=== PATIENT | male | born 1945 | race Caucasian/White ===

== ENCOUNTER 2022-06-05 22:12 | Inpatient (IN) | payer MEDICARE, BC ==
[~2022-06-05] VITALS: Ht 167.6 cm; Wt 75.3 kg
[2022-06-05] MEDS ORDERED: ALBUTEROL (0.083%) 2.5MG/3ML NEB HHN STA (22:22)
[2022-06-05] MEDS ORDERED: METHYLPREDNISOLONE SOD SUCC 125 MG/2 ML VIAL IV STA (22:22)
[2022-06-05] MEDS ORDERED: NITROGLYCERIN 50MG PREMIX 250 ML IV ONE ×2 (22:30→22:45)
[2022-06-05 22:45] LABS: BG BASE EXCESS 0.3 mmol/L (-2.0-2.0); BG CARBOXYHEMOGLOBIN 4.5 % (0.5-1.5); BG DEOXYHEMOGLOBIN 0.5 % (0.0-5.0); BG FRACTION INSPIRED OXYGEN 100; BG HCO3 ACT 24.8 mmol/L (22.0-26.0); BG METHEMOGLOBIN 0.3 % (0.0-1.5); BG OXYGEN SATURATION 99.5 % (92.0-98.5); BG OXYHEMOGLOBIN 94.7 % (94.0-97.0); BG PCO2 39.7 mmHg (35.0-45.0); BG PH 7.414 (7.350-7.450); BG PO2 513.4 mmHg (75.0-100.0); BG SAMPLE SITE RIGHT RADIAL; BG TOTAL HEMOGLOBIN 13.7 g/dL (12.0-18.0); BG VENT MODE MASK - BIPAP
[2022-06-05 22:49] LABS: BASOPHILS % 0.9 % (0.0-2.0); EOSINOPHILS % 2.2 % (0.0-5.0); HEMATOCRIT. 42.3 % (42.0-52.0); HEMOGLOBIN. 13.7 g/dL (14.0-18.0); LYMPHOCYTES % 23.9 % (20.0-50.0); MEAN CORPUSCULAR HEMOGLOBIN 28.2 pg (28.0-32.0); MEAN CORPUSCULAR VOLUME 86.7 fL (80.0-94.0); MEAN PLATELET VOLUME 9.8 fl (7.4-10.4); MONOCYTES % 13.4 % (2.0-8.0); NEUTROPHILS % 59.6 % (40.0-76.0); PLATELET 389 x1000/uL (130-400); RED BLOOD CELL COUNT 4.88 mill/uL (4.7-6.1); RED CELL DISTRIBUTION WIDTH 15.2 % (11.6-14.6)
[2022-06-05 22:54] LABS: CHLORIDE 106 mEq/L (98-107)
[2022-06-05 22:59] LABS: PARTIAL THROMBOPLASTIN TIME 27.6 sec (23.4-31.0); PROTHROMBIN TIME 10.9 sec (9.6-11.0)
[2022-06-06] MEDS ORDERED: ASPIRIN 81MG TABLET PO ONE (01:30)
[2022-06-06] MEDS ORDERED: CLONIDINE 0.1MG TABLET PO PRN (02:00)
[2022-06-06] MEDS ORDERED: LORAZEPAM 0.5MG TABLET PO PRN (02:00)
[2022-06-06] MEDS ORDERED: DOCUSATE SODIUM 100MG CAPSULE PO PRN (02:00)
[2022-06-06] MEDS ORDERED: IPRATROPIUM/ALBUTEROL 0.5-3(2.5)MG/3ML NEB HHN PRN (02:00)
[2022-06-06] MEDS ORDERED: ACETAMINOPHEN 325MG TABLET PO PRN ×2 (02:00)
[2022-06-06] MEDS ORDERED: ONDANSETRON HCL 4MG/2ML INJ IV PRN (02:00)
[2022-06-06] MEDS ORDERED: ALBUTEROL (0.083%) 2.5MG/3ML NEB HHN PRN (02:15)
[2022-06-06] MEDS ORDERED: IPRATROPIUM BROMIDE (0.02%) 0.5MG/2.5ML NEB HHN PRN (02:15)
[2022-06-06] MEDS ORDERED: NITROGLYCERIN 0.4MG TABLET SL SL PRN (02:15)
[2022-06-06] MEDS ORDERED: DEXTROSE 50% WATER 50ML SYRINGE IV PRN (02:45)
[2022-06-06 02:59] LABS: PHOSPHORUS 2.2 mg/dL (2.5-4.9)
[2022-06-06] MEDS ORDERED: AZITHROMYCIN 250 MG in DEXT 5% WATER 250 ML IV SCH ×2 (03:00→06:30)
[2022-06-06] MEDS ORDERED: FUROSEMIDE 40MG/4ML VIAL IVP NR (04:15)
[2022-06-06 04:25] LABS: D-DIMER 2.19 mg/L FEU (<0.50); PARTIAL THROMBOPLASTIN TIME 27.5 sec (23.4-31.0); PROTHROMBIN TIME 10.7 sec (9.6-11.0)
[2022-06-06 04:26] LABS: CREATINE KINASE MB FRACTION 2.3 ng/mL (0.5-3.6)
[2022-06-06] MEDS ORDERED: SODIUM PHOS,M-BASIC-D-BASIC 10 MM in DEXT 5% WATER 246.6667 ML IV NR (06:30)
[2022-06-06] MEDS: BLOOD SUGAR DIAGNOSTIC STRIP TEST SCH ×3 (08:29→21:47)
[2022-06-06] MEDS ORDERED: METHYLPREDNISOLONE SOD SUCC 40 MG/ML VIAL IV SCH (09:00)
[2022-06-06] MEDS ORDERED: LISINOPRIL 40MG TABLET PO SCH (09:00)
[2022-06-06] MEDS ORDERED: IOHEXOL-300 100 ML BOTTLE ONE (09:41)
[2022-06-06] MEDS: FAMOTIDINE 20MG TABLET PO SCH ×2 (10:17→21:48)
[2022-06-06] MEDS: ENOXAPARIN 40MG/0.4ML SYR SUBCUT SCH (10:17)
[2022-06-06] MEDS ORDERED: LISINOPRIL 20MG TABLET PO SCH (10:20)
[2022-06-06] MEDS: LISINOPRIL 20MG TABLET PO SCH (12:15)
[2022-06-06] MEDS ORDERED: CARV3.1242 PO (12:26)
[2022-06-06] MEDS ORDERED: HYDR12.54 PO (12:26)
[2022-06-06] MEDS ORDERED: LISI40TA13 PO (12:26)
[2022-06-06] MEDS ORDERED: SIMV-46 PO (12:26)
[2022-06-06] MEDS ORDERED: HYDRALAZINE 10 MG in SODIUM CHLORIDE 0.9% 49.5 ML IV PRN (12:30)
[2022-06-06] MEDS ORDERED: HYDRALAZINE 20MG/ML VIAL IV PRN (12:45)
[2022-06-06 13:40] VITALS: BP 144/80
[2022-06-06 17:01] VITALS: BP 138/67
[2022-06-06 18:05] LABS: CREATINE KINASE MB FRACTION 2.1 ng/mL (0.5-3.6)
[2022-06-06] MEDS: FUROSEMIDE 40MG/4ML VIAL IVP SCH (18:52)
[2022-06-06 20:00] VITALS: BP 160/87
[2022-06-06] MEDS ORDERED: MEDICATION NOT ON FORMULARY EA (Simvastatin 1 TAB) PO SCH (21:00)
[2022-06-06] MEDS: ATORVASTATIN CALCIUM 20MG TABLET PO SCH ×2 (21:46→21:48)
[2022-06-07] VITALS (7 sets, daily range): BP systolic 147–170; BP diastolic 82–101
[2022-06-07 00:43] LABS: CREATINE KINASE MB FRACTION 2.1 ng/mL (0.5-3.6)
[2022-06-07 01:00] LABS: HEPATITIS B SURFACE ANTIGEN NEGATIVE
[2022-06-07 06:02] LABS: BASOPHILS % 0.2 % (0.0-2.0); EOSINOPHILS % 0.3 % (0.0-5.0); HEMATOCRIT. 40.4 % (42.0-52.0); HEMOGLOBIN. 13.3 g/dL (14.0-18.0); LYMPHOCYTES % 17.2 % (20.0-50.0); MEAN CORPUSCULAR VOLUME 85.2 fL (80.0-94.0); MEAN PLATELET VOLUME 10.2 fl (7.4-10.4); MONOCYTES % 14.7 % (2.0-8.0); NEUTROPHILS % 67.6 % (40.0-76.0); PLATELET 302 x1000/uL (130-400); RED BLOOD CELL COUNT 4.74 mill/uL (4.7-6.1)
[2022-06-07 06:15] LABS: CHLORIDE 103 mEq/L (98-107)
[2022-06-07] MEDS: BLOOD SUGAR DIAGNOSTIC STRIP TEST SCH ×4 (07:40→21:04)
[2022-06-07] MEDS: LISINOPRIL 20MG TABLET PO SCH (08:25)
[2022-06-07] MEDS: FAMOTIDINE 20MG TABLET PO SCH ×2 (08:25→21:01)
[2022-06-07] MEDS: ENOXAPARIN 40MG/0.4ML SYR SUBCUT SCH (08:26)
[2022-06-07] MEDS: FUROSEMIDE 40MG/4ML VIAL IVP SCH (08:26)
[2022-06-07] MEDS ORDERED: POTASSIUM CHLORIDE 20MEQ/PACKET PO NR (08:45)
[2022-06-07 13:47] LABS: *AMPHETAMINES SCREEN URINE NEGATIVE (NEGATIVE); *BARBITURATES SCREEN URINE NEGATIVE (NEGATIVE); *BENZODIAZEPINES SCREEN URINE NEGATIVE (NEGATIVE); *COCAINE SCREEN URINE NEGATIVE (NEGATIVE); CANNABINOID URINE SCREEN PRESUMTIVE POSITIVE (NEGATIVE); METHADONE URINE SCREEN NEGATIVE (NEGATIVE); OPIATES URINE SCREEN NEGATIVE (NEGATIVE); PHENCYCLIDINE URINE SCREEN NEGATIVE (NEGATIVE)
[2022-06-07 17:15] LABS: CLARITY URINE CLEAR (CLEAR); COLOR URINE YELLOW (YELLOW); KETONES URINE NEGATIVE (NEGATIVE); LEUKOCYTE ESTERASE URINE NEGATIVE (NEGATIVE); NITRITE URINE NEGATIVE (NEGATIVE); OCCULT BLOOD URINE NEGATIVE (NEGATIVE); PH URINE 6.5 (4.5-8.0); PROTEIN URINE 1+ (NEGATIVE); SPECIFIC GRAVITY URINE 1.016 (1.005-1.030)
[2022-06-07] MEDS: CLONIDINE 0.1MG TABLET PO SCH (17:43)
[2022-06-07] MEDS: AMLODIPINE 10MG TABLET PO SCH (17:44)
[2022-06-08] VITALS: BP 140/74
[2022-06-08 04:00] VITALS: BP 140/77
[2022-06-08] MEDS: BLOOD SUGAR DIAGNOSTIC STRIP TEST SCH ×5 (07:40→20:55)
[2022-06-08 08:00] VITALS: BP 148/83
[2022-06-08 08:52] LABS: HEMATOCRIT. 44.6 % (42.0-52.0); MEAN CORPUSCULAR HEMOGLOBIN 28.7 pg (28.0-32.0); MEAN CORPUSCULAR VOLUME 85.5 fL (80.0-94.0); MEAN PLATELET VOLUME 10.1 fl (7.4-10.4); PLATELET 317 x1000/uL (130-400); RED BLOOD CELL COUNT 5.22 mill/uL (4.7-6.1); RED CELL DISTRIBUTION WIDTH 14.9 % (11.6-14.6)
[2022-06-08] MEDS: CLONIDINE 0.1MG TABLET PO SCH ×2 (09:00→17:20)
[2022-06-08 09:03] LABS: CHLORIDE 103 mEq/L (98-107)
[2022-06-08 09:17] LABS: HDL CHOLESTEROL 51 mg/dL (40-59); LDL CHOLESTEROL 134 mg/dL (5-100); PHOSPHORUS 3.3 mg/dL (2.5-4.9); TOTAL IRON BINDING CAPACITY 404 ug/dL (250-450)
[2022-06-08 09:38] LABS: PLATELET ESTIMATE NORMAL
[2022-06-08 09:47] LABS: VITAMIN B12 SERUM 375 pg/mL (211-911)
[2022-06-08] MEDS: FUROSEMIDE 40MG/4ML VIAL IVP SCH (09:59)
[2022-06-08] MEDS: FAMOTIDINE 20MG TABLET PO SCH ×2 (09:59→21:16)
[2022-06-08] MEDS: ENOXAPARIN 40MG/0.4ML SYR SUBCUT SCH (09:59)
[2022-06-08] MEDS: LISINOPRIL 20MG TABLET PO SCH (10:00)
[2022-06-08] MEDS: AMLODIPINE 10MG TABLET PO SCH (10:01)
[2022-06-08] MEDS ORDERED: THROAT LOZENGES-BENZOCAINE/MENTH/CETYLPYRD CL LOZENGES MM PRN (10:45)
[2022-06-08 12:00] VITALS: BP 122/62
[2022-06-08 16:00] VITALS: BP 112/75
[2022-06-08 20:00] VITALS: BP 100/67
[2022-06-08] MEDS: ATORVASTATIN CALCIUM 20MG TABLET PO SCH (21:16)
[2022-06-09] VITALS: BP 126/71
[2022-06-09 04:00] VITALS: BP 131/76
[2022-06-09] MEDS: BLOOD SUGAR DIAGNOSTIC STRIP TEST SCH ×4 (05:25→20:37)
[2022-06-09 08:00] VITALS: BP 122/72
[2022-06-09 08:06] LABS: HEMATOCRIT. 46.2 % (42.0-52.0); HEMOGLOBIN. 15.4 g/dL (14.0-18.0); MEAN CORPUSCULAR HEMOGLOBIN 28.2 pg (28.0-32.0); MEAN CORPUSCULAR VOLUME 84.6 fL (80.0-94.0); MEAN PLATELET VOLUME 10.2 fl (7.4-10.4); PLATELET 314 x1000/uL (130-400); RED BLOOD CELL COUNT 5.46 mill/uL (4.7-6.1); RED CELL DISTRIBUTION WIDTH 14.8 % (11.6-14.6)
[2022-06-09 08:41] LABS: CHLORIDE 103 mEq/L (98-107)
[2022-06-09] MEDS: AMLODIPINE 10MG TABLET PO SCH (08:56)
[2022-06-09] MEDS: LISINOPRIL 20MG TABLET PO SCH (08:56)
[2022-06-09] MEDS: FAMOTIDINE 20MG TABLET PO SCH ×2 (08:56→20:46)
[2022-06-09] MEDS: ENOXAPARIN 40MG/0.4ML SYR SUBCUT SCH (08:57)
[2022-06-09] MEDS: CLONIDINE 0.1MG TABLET PO SCH ×2 (08:57→17:00)
[2022-06-09] MEDS: FUROSEMIDE 20MG TABLET PO SCH (09:02)
[2022-06-09 09:20] LABS: PLATELET ESTIMATE NORMAL
[2022-06-09 12:00] VITALS: BP 105/68
[2022-06-09 15:57] VITALS: BP 105/53
[2022-06-09 20:00] VITALS: BP 131/76
[2022-06-09] MEDS: ATORVASTATIN CALCIUM 20MG TABLET PO SCH (20:46)
[2022-06-10] VITALS: BP 120/72
[2022-06-10 04:00] VITALS: BP 123/71
[2022-06-10] MEDS: BLOOD SUGAR DIAGNOSTIC STRIP TEST SCH ×3 (04:25→16:52)
[2022-06-10 06:19] LABS: HEMOGLOBIN. 14.6 g/dL (14.0-18.0); MEAN CORPUSCULAR HEMOGLOBIN 27.8 pg (28.0-32.0); MEAN CORPUSCULAR VOLUME 85.5 fL (80.0-94.0); MEAN PLATELET VOLUME 9.9 fl (7.4-10.4); PLATELET 288 x1000/uL (130-400); RED BLOOD CELL COUNT 5.26 mill/uL (4.7-6.1); RED CELL DISTRIBUTION WIDTH 14.6 % (11.6-14.6)
[2022-06-10 08:10] LABS: CHLORIDE 106 mEq/L (98-107)
[2022-06-10] MEDS: LISINOPRIL 20MG TABLET PO SCH (08:27)
[2022-06-10] MEDS: FUROSEMIDE 20MG TABLET PO SCH (08:27)
[2022-06-10] MEDS: AMLODIPINE 10MG TABLET PO SCH (08:27)
[2022-06-10] MEDS: FAMOTIDINE 20MG TABLET PO SCH (08:27)
[2022-06-10] MEDS: CLONIDINE 0.1MG TABLET PO SCH ×2 (08:31→16:38)
[2022-06-10] MEDS ORDERED: NICARDIPINE 100MCG/ML 10ML VIAL (CATH LAB) IV ONE (10:09)
[2022-06-10] MEDS ORDERED: PHENYLEPHRINE 100MCG/ML 10ML VIAL (CATH LAB) ONE (10:09)
[2022-06-10] MEDS ORDERED: NITROGLYCERIN 50MCG/ML 10ML VIAL (CATH LAB) IV ONE (10:09)
[2022-06-10] MEDS ORDERED: IODIXANOL 320MG/ML 100 ML BOTTLE IV ONE (10:24)
[2022-06-10] MEDS ORDERED: LIDOCAINE HCL/PF 1% 10 MG/ML 5ML VIAL ONE ×2 (10:24→10:36)
[2022-06-10 10:25] LABS: PLATELET ESTIMATE NORMAL
[2022-06-10] MEDS ORDERED: HEPARIN 1000 UNITS/ML 10ML ONE (10:25)
[2022-06-10] MEDS ORDERED: MIDAZOLAM HCL 2 MG/2 ML VIAL ONE (10:45)
[2022-06-10] MEDS ORDERED: FENTANYL CITRATE/PF 50MCG/ML 2ML VIAL ONE (10:45)
[2022-06-10] MEDS ORDERED: LIDOCAINE HCL 1% 20ML VIAL (Pyxis) INJ ONE (11:08)
[2022-06-10] MEDS ORDERED: LIDOCAINE HCL/PF 2% 20MG/ML 5 ML/VIAL ONE (11:09)
[2022-06-10] MEDS ORDERED: ATROPINE SULFATE 1MG/10ML SYR IV PRN (12:00)
[2022-06-10] MEDS ORDERED: SODIUM CHLORIDE 0.9% 1,000 ML IV SCH (17:45)
== END 2022-06-10 20:05 | disposition left against medical advice (07) | DRG 280 ==
LOC: ER 22:12 → MICUSO 06-06 01:52 → UNDOADMIN 06-06 01:52 → EDBEDREQSVC 06-06 01:59 → EDBEDREQDT 06-06 01:59 → EDBEDREQ 06-06 01:59 → EDBEDREQTM 06-06 01:59 → 7WST 06-06 14:07
PROVIDERS: ADMIT Internal Medicine; ATTEND Internal Medicine
PROC: 4A023N8 Measurement of Cardiac Sampling and Pressure, Bilateral, Percutaneous Approach (ICD-10-PCS; principal; 2022-06-10)
PROC: B2111ZZ Fluoroscopy of Multiple Coronary Arteries using Low Osmolar Contrast (ICD-10-PCS; 2022-06-10)
PROC: B2151ZZ Fluoroscopy of Left Heart using Low Osmolar Contrast (ICD-10-PCS; 2022-06-10)
PROC: 5A09357 Assistance with Respiratory Ventilation, Less than 24 Consecutive Hours, Continuous Positive Airway Pressure (ICD-10-PCS; 2022-06-10)
DX: I35.0 Nonrheumatic aortic (valve) stenosis (principal); J96.01 Acute respiratory failure with hypoxia; I21.A1 Myocardial infarction type 2; I16.1 Hypertensive emergency; R65.10 Systemic inflammatory response syndrome (SIRS) of non-infectious origin without acute organ dysfunction; I11.0 Hypertensive heart disease with heart failure; E78.5 Hyperlipidemia, unspecified; I50.9 Heart failure, unspecified; Z20.822 Contact with and (suspected) exposure to COVID-19; D64.9 Anemia, unspecified; E78.00 Pure hypercholesterolemia, unspecified; R01.1 Cardiac murmur, unspecified; Z96.619 Presence of unspecified artificial shoulder joint; Z53.29 Procedure and treatment not carried out because of patient's decision for other reasons; Z87.891 Personal history of nicotine dependence; I25.10 Atherosclerotic heart disease of native coronary artery without angina pectoris; Z79.899 Other long term (current) drug therapy
CPT/HCPCS: 36415; 36600; 71045; 71275; 80048; 80053; 80061; 80305; 81003; 82375; 82550; 82553; 82607; 82746; 82805; 82962; 83036; 83540; 83550; 83605; 83735; 83880; 84100; 84145; 84484; 85025; 85379; 86803; 87340; 87426; 87804; 93005; 93306; 93460; 93970; 94640; 94660; 97162; 97165; 99291; C1760; C1769; C1887; C1893; J0456; J1644; J1650; J1940; J2250; J2370; J2930; J3010; J3490; J7030; J7060; Q9967